=== PATIENT | female | born 1965 | race Hispanic/Latino ===

== ENCOUNTER 2021-08-19 12:57 | Inpatient (IN) | payer SELFPAY ==
[~2021-08-19] VITALS: Ht 157.5 cm; Wt 102.5 kg
[2021-08-19] MEDS ORDERED: SODIUM CHLORIDE 0.9% 1000ML 1,000 ML IV STA (13:19)
[2021-08-19] MEDS ORDERED: ONDANSETRON HCL INJ 2MG/ML 2ML 2 MG/ML VIAL IV ONE (13:30)
[2021-08-19] MEDS ORDERED: MORPHINE SULFATE INJ 4 MG/ML INJ 1ML IV ONE (13:30)
[2021-08-19 13:50] LABS: BASOPHILS # (AUTO) 0.1 (0.0-0.1); BASOPHILS % 0.6 % (0.0-1.0); EOSINOPHILS # (AUTO) 0.1 (0.0-0.4); EOSINOPHILS % 0.5 % (0.0-6.0); HEMATOCRIT 41.7 % (34.2-44.1); HEMOGLOBIN 13.3 g/dL (12.0-16.0); LYMPHOCYTES # (AUTO) 2.2 (1.0-3.2); LYMPHOCYTES % 18.9 % (18.0-39.1); MEAN CORPUSCULAR HEMOGLOBIN 27.5 pg (28-32); MEAN CORPUSCULAR HGB CONC 31.9 g/dL (31-35); MEAN CORPUSCULAR VOLUME 86.2 fL (81-99); MONOCYTES % 8.4 % (4.4-11.3); NEUTROPHILS # (AUTO) 8.2 (2.1-6.9); NEUTROPHILS % 71.1 % (38.7-80.0); PLATELET COUNT 292 x10e3/uL (140-360); RED BLOOD COUNT 4.84 x10e6/uL (3.6-5.1); RED CELL DISTRIBUTION WIDTH 11.9 % (11.7-14.4)
[2021-08-19 14:04] LABS: CLARITY,URINE CLEAR (CLEAR); COLOR,URINE YELLOW (YELLOW); LEUKOCYTE ESTERASE ,URINE TRACE (NEGATIVE); NITRITE,URINE NEGATIVE (NEGATIVE)
[2021-08-19 14:05] LABS: KETONES,URINE 2+ (NEGATIVE); PROTEIN,URINE DIPSTICK 2+ (NEGATIVE); URINE UROBILINOGEN 0.2 mg/dL (0.2 - 1)
[2021-08-19 14:06] LABS: BACTERIA,URINE MODERATE /HPF; EPITHELIAL CELLS,URINE MANY /LPF
[2021-08-19] MEDS ORDERED: CEFTRIAXONE 1 GM in SODIUM CHLORIDE 0.9% 50ML 50 ML IV ONE (15:15)
[2021-08-19 16:12] LABS: ALBUMIN 3.4 g/dL (3.5-5.0); ALBUMIN/GLOBULIN RATIO 0.8 (0.8-2.0); ANION GAP 19.7 mmol/L (8-16); CALCIUM 9.5 mg/dL (8.4-10.2); CREATININE, SERUM 1.05 mg/dL (0.57-1.11); MAGNESIUM 1.9 MG/DL (1.3-2.1); POTASSIUM 3.7 mmol/L (3.5-5.1)
[2021-08-19 16:18] LABS: CREATINE KINASE MB 0.3 ng/mL (0-5.0)
[2021-08-19] MEDS ORDERED: SODIUM CHLORIDE 0.9% 50ML 50 ML ONE (16:39)
[2021-08-19] MEDS ORDERED: PIPERACILLIN/TAZOBACTAM 3.375 GM in SODIUM CHLORIDE 0.9% 50ML 50 ML IV ONE (17:15)
[2021-08-19] MEDS ORDERED: KETOROLAC TROMETHAMINE 30 MG/ML VIAL IV STA (17:21)
[2021-08-19] MEDS ORDERED: ONDANSETRON HCL INJ 2MG/ML 2ML 2 MG/ML VIAL IV PRN (17:30)
[2021-08-19] MEDS ORDERED: HYDRALAZINE HCL 20 MG/ML VIAL IV PRN (17:30)
[2021-08-19] MEDS ORDERED: MORPHINE SULFATE INJ 4 MG/ML INJ 1ML IV PRN (17:30)
[2021-08-19] MEDS: SODIUM CHLORIDE 0.9% 1000ML 1,000 ML IV SCH ×2 (18:20→20:04)
[2021-08-19 20:00] VITALS: BP 157/92
[2021-08-19] MEDS ORDERED: MIRALAX17 GM PO (20:45)
[2021-08-19] MEDS ORDERED: DEXTROSE 50% SYRINGE 50 ML IV PRN (21:15)
[2021-08-19] MEDS: INSULIN REGULAR, HUMAN 100 UNIT/1 ML SQ SCH (22:00)
[2021-08-19] MEDS: INSULIN GLARGINE 100 UNITS/ML VIAL SQ SCH (22:01)
[2021-08-20] VITALS (8 sets, daily range): BP systolic 111–168; BP diastolic 74–91
[2021-08-20] MEDS: SODIUM CHLORIDE 0.9% 1000ML 1,000 ML IV SCH ×3 (04:14→21:21)
[2021-08-20] MEDS: PIPERACILLIN/TAZOBACTAM 3.375 GM in SODIUM CHLORIDE 0.9% 50ML 50 ML IV SCH ×5 (05:53→18:59)
[2021-08-20 06:23] LABS: BASOPHILS # (AUTO) 0.1 (0.0-0.1); BASOPHILS % 0.7 % (0.0-1.0); EOSINOPHILS # (AUTO) 0.1 (0.0-0.4); EOSINOPHILS % 1.1 % (0.0-6.0); HEMATOCRIT 35.7 % (34.2-44.1); HEMOGLOBIN 11.4 g/dL (12.0-16.0); LYMPHOCYTES # (AUTO) 1.5 (1.0-3.2); LYMPHOCYTES % 16.2 % (18.0-39.1); MEAN CORPUSCULAR HGB CONC 31.9 g/dL (31-35); MEAN CORPUSCULAR VOLUME 87.7 fL (81-99); MONOCYTES % 10.6 % (4.4-11.3); NEUTROPHILS # (AUTO) 6.4 (2.1-6.9); NEUTROPHILS % 71.1 % (38.7-80.0); PLATELET COUNT 233 x10e3/uL (140-360); RED BLOOD COUNT 4.07 x10e6/uL (3.6-5.1)
[2021-08-20 06:54] LABS: ALBUMIN 2.7 g/dL (3.5-5.0); ALBUMIN/GLOBULIN RATIO 0.8 (0.8-2.0); ANION GAP 10.3 mmol/L (8-16); CALCIUM 8.2 mg/dL (8.4-10.2); CREATININE, SERUM 0.85 mg/dL (0.57-1.11); POTASSIUM 3.3 mmol/L (3.5-5.1)
[2021-08-20] MEDS: INSULIN REGULAR, HUMAN 100 UNIT/1 ML SQ SCH ×4 (09:01→21:17)
[2021-08-20] MEDS ORDERED: BUPIVACAINE 0.25% 30ML SDV ONE (17:26)
[2021-08-20] MEDS ORDERED: LIDOCAINE 1% W/EPINEPHRINE 20 ML VIAL ONE (17:26)
[2021-08-20] MEDS ORDERED: HYDROCODONE/APAP 7.5MG-325MG 1 EA TAB PO PRN (19:00)
[2021-08-20] MEDS ORDERED: HYDROMORPHONE 1MG/1ML INJ IV PRN (19:00)
[2021-08-20] MEDS: INSULIN GLARGINE 100 UNITS/ML VIAL SQ SCH (21:17)
[2021-08-21] VITALS: BP 150/97
[2021-08-21] MEDS: PIPERACILLIN/TAZOBACTAM 3.375 GM in SODIUM CHLORIDE 0.9% 50ML 50 ML IV SCH ×3 (00:27→13:53)
[2021-08-21 04:00] VITALS: BP 148/84
[2021-08-21 05:03] LABS: BASOPHILS % 0.2 % (0.0-1.0); HEMATOCRIT 36.1 % (34.2-44.1); HEMOGLOBIN 11.4 g/dL (12.0-16.0); LYMPHOCYTES # (AUTO) 0.8 (1.0-3.2); LYMPHOCYTES % 7.8 % (18.0-39.1); MEAN CORPUSCULAR HEMOGLOBIN 27.8 pg (28-32); MEAN CORPUSCULAR HGB CONC 31.6 g/dL (31-35); MONOCYTES # (AUTO) 0.4 (0.2-0.8); MONOCYTES % 3.7 % (4.4-11.3); NEUTROPHILS # (AUTO) 9.3 (2.1-6.9); NEUTROPHILS % 87.7 % (38.7-80.0); PLATELET COUNT 273 x10e3/uL (140-360)
[2021-08-21 05:26] LABS: ANION GAP 15.1 mmol/L (8-16); CALCIUM 8.5 mg/dL (8.4-10.2); CREATININE, SERUM 0.9 mg/dL (0.57-1.11); POTASSIUM 4.1 mmol/L (3.5-5.1)
[2021-08-21] MEDS: SODIUM CHLORIDE 0.9% 1000ML 1,000 ML IV SCH (05:26)
[2021-08-21] MEDS: INSULIN REGULAR, HUMAN 100 UNIT/1 ML SQ SCH ×2 (07:30→11:30)
[2021-08-21 08:02] VITALS: BP 154/97
[2021-08-21 08:06] VITALS: BP 154/97
[2021-08-21 12:00] VITALS: BP 167/93
[2021-08-21] MEDS ORDERED: METFORMIN HCL 500 MG TAB CR PO ONE (14:00)
[2021-08-21] MEDS ORDERED: COLACE100 MG PO (14:24)
[2021-08-21] MEDS ORDERED: FLAGYL500 MG PO (14:24)
[2021-08-21] MEDS ORDERED: METFORMIN HCL500 MG PO (14:24)
[2021-08-21] MEDS ORDERED: SENNA LAX8.6 MG PO (14:24)
[2021-08-21] MEDS ORDERED: ZOFRAN4 MG PO (14:24)
[2021-08-21] MEDS ORDERED: ACETAMINOPHEN650 M1 PO (14:24)
[2021-08-21] MEDS ORDERED: ONDANSETRON HCL 4 MG ORAL DISINTEGRATING TAB PO PRN (15:30)
[2021-08-21] MEDS ORDERED: METFORMIN HCL 500 MG TAB PO SCH (17:00)
== END 2021-08-21 15:28 | disposition home or self-care (01) | DRG 418 ==
LOC: ER 13:07 → ERHOLD 17:30 → MED/SURG2 18:28
PROVIDERS: ADMIT Internal Medicine; ATTEND Internal Medicine
PROC: 0FT44ZZ Resection of Gallbladder, Percutaneous Endoscopic Approach (ICD-10-PCS; principal; 2021-08-19)
DX: K80.00 Calculus of gallbladder with acute cholecystitis without obstruction (principal); N39.0 Urinary tract infection, site not specified; Z68.41 Body mass index [BMI] 40.0-44.9, adult; Z20.822 Contact with and (suspected) exposure to COVID-19; E11.9 Type 2 diabetes mellitus without complications; E66.01 Morbid (severe) obesity due to excess calories; B95.1 Streptococcus, group B, as the cause of diseases classified elsewhere
CPT/HCPCS: 36415; 74177; 78226; 80048; 80053; 80061; 81001; 82150; 82550; 82553; 82948; 83036; 83690; 83735; 84484; 85025; 87086; 88304; 93005; 99284; A9537; C1766; J0360; J0696; J1815; J1817; J1885; J2405; J2543; J7030; U0002

== ENCOUNTER 2022-01-29 03:30 | Inpatient (IN) | payer SELFPAY ==
[~2022-01-29] VITALS: Ht 157.5 cm; Wt 99.8 kg
[~2022-01-29 03:30] MED LIST: ACETAMINOPHEN650 M1 PO; COLACE100 MG PO; FLAGYL500 MG PO; METFORMIN HCL500 MG PO; MIRALAX17 GM PO; SENNA LAX8.6 MG PO; ZOFRAN4 MG PO
[2022-01-29] MEDS ORDERED: ONDANSETRON HCL INJ 2MG/ML 2ML 2 MG/ML VIAL IV STA (03:47)
[2022-01-29 03:59] LABS: BASOPHILS # (AUTO) 0.1 (0.0-0.1); BASOPHILS % 0.4 % (0.0-1.0); EOSINOPHILS # (AUTO) 0.1 (0.0-0.4); EOSINOPHILS % 0.8 % (0.0-6.0); HEMATOCRIT 31.1 % (34.2-44.1); HEMOGLOBIN 10.2 g/dL (12.0-16.0); LYMPHOCYTES # (AUTO) 1.7 (1.0-3.2); LYMPHOCYTES % 13.9 % (18.0-39.1); MEAN CORPUSCULAR HGB CONC 32.8 g/dL (31-35); MEAN CORPUSCULAR VOLUME 85.4 fL (81-99); MONOCYTES % 8.2 % (4.4-11.3); NEUTROPHILS # (AUTO) 9.3 (2.1-6.9); NEUTROPHILS % 76.1 % (38.7-80.0); PLATELET COUNT 150 x10e3/uL (140-360); RED BLOOD COUNT 3.64 x10e6/uL (3.6-5.1); RED CELL DISTRIBUTION WIDTH 12.8 % (11.7-14.4)
[2022-01-29] MEDS ORDERED: SODIUM CHLORIDE 0.9% 1000ML 1,000 ML IV ONE (04:00)
[2022-01-29] MEDS: Morphine 4mg Syringe 4 MG/ML INJ IV ONE ×2 (04:03→04:10)
[2022-01-29 04:14] LABS: AMYLASE 38 U/L (25-125); LIPASE 16 U/L (8-78)
[2022-01-29 04:16] LABS: ALBUMIN 3.2 g/dL (3.5-5.0); ANION GAP 14.8 mmol/L (8-16); CALCIUM 9.1 mg/dL (8.4-10.2); CREATININE, SERUM 1.19 mg/dL (0.57-1.11); POTASSIUM 3.8 mmol/L (3.5-5.1)
[2022-01-29] MEDS ORDERED: ONDANSETRON HCL INJ 2MG/ML 2ML 2 MG/ML VIAL ONE (04:18)
[2022-01-29] MEDS ORDERED: IOPAMIDOL 370 MG/ML 200 ML INFUS..BTL INJ ONE (04:31)
[2022-01-29] MEDS ORDERED: SODIUM CHLORIDE 0.9% 50ML 50 ML ONE (04:31)
[2022-01-29 04:58] LABS: CLARITY,URINE CLOUDY (CLEAR); COLOR,URINE YELLOW (YELLOW); KETONES,URINE 2+ (NEGATIVE); LEUKOCYTE ESTERASE ,URINE SMALL (NEGATIVE); NITRITE,URINE NEGATIVE (NEGATIVE); PROTEIN,URINE DIPSTICK TRACE (NEGATIVE); URINE UROBILINOGEN 0.2 mg/dL (0.2 - 1)
[2022-01-29] MEDS ORDERED: KETOROLAC TROMETHAMINE 30 MG/ML VIAL IV STA ×2 (04:58)
[2022-01-29 05:01] LABS: BACTERIA,URINE FEW /HPF; EPITHELIAL CELLS,URINE MANY /LPF
[2022-01-29] MEDS ORDERED: PIPERACILLIN/TAZOBACTAM 4.5 GM in SODIUM CHLORIDE 0.9% 100 ML IV STA (05:41)
[2022-01-29] MEDS ORDERED: PIPERACILLIN/TAZOBACTAM 4.5GM 4.5 GM VIAL ONE (05:57)
[2022-01-29] MEDS ORDERED: SODIUM CHLORIDE 0.9% 100 ML ONE (05:58)
[2022-01-29] MEDS ORDERED: Morphine 4mg Syringe 4 MG/ML INJ IV PRN (06:00)
[2022-01-29] MEDS: SODIUM CHLORIDE 0.9% 1000ML 1,000 ML IV SCH ×3 (06:00→22:00)
[2022-01-29 08:15] VITALS: BP 118/75
[2022-01-29] MEDS ORDERED: METRONIDAZOLE 750MG/NS 150ML 150 ML IV SCH (09:00)
[2022-01-29] MEDS ORDERED: SODIUM CHLORIDE 0.9% 1000ML 1,000 ML ONE (09:01)
[2022-01-29] MEDS: METRONIDAZOLE 500MG/NS 100ML 100 ML IV SCH ×3 (09:30→21:55)
[2022-01-29] MEDS ORDERED: DEXTROSE 50% SYRINGE 50 ML IV PRN (09:45)
[2022-01-29] MEDS ORDERED: INSULIN REGULAR, HUMAN 100 UNIT/1 ML SQ ONE (10:10)
[2022-01-29 11:30] VITALS: BP 107/67
[2022-01-29] MEDS ORDERED: ACETAMINOPHEN 325 MG TAB PO PRN (12:15)
[2022-01-29] MEDS ORDERED: POLYETHYLENE GLYCOL 3350 17 GM PACK PO PRN (12:15)
[2022-01-29] MEDS: INSULIN REGULAR, HUMAN 100 UNIT/1 ML SQ SCH ×3 (12:22→21:56)
[2022-01-29] MEDS: INSULIN GLARGINE 100 UNITS/ML VIAL SQ SCH ×3 (12:30→21:57)
[2022-01-29] MEDS: PIPERACILLIN/TAZOBACTAM 3.375 GM in SODIUM CHLORIDE 0.9% 50ML 50 ML IV SCH ×2 (13:39→17:11)
[2022-01-29 16:14] VITALS: BP 94/76
[2022-01-29] MEDS ORDERED: ENOXAPARIN SOD INJ 40 MG/0.4 ML SYR SC SCH (17:00)
[2022-01-29] MEDS: ONDANSETRON HCL INJ 2MG/ML 2ML 2 MG/ML VIAL IV PRN (19:45)
[2022-01-29 20:00] VITALS: BP 103/67
[2022-01-29 23:50] VITALS: BP 103/67
[2022-01-30] VITALS (18 sets, daily range): BP systolic 95–147; BP diastolic 55–99
[2022-01-30] MEDS: PIPERACILLIN/TAZOBACTAM 3.375 GM in SODIUM CHLORIDE 0.9% 50ML 50 ML IV SCH ×5 (00:33→23:35)
[2022-01-30] MEDS: ONDANSETRON HCL INJ 2MG/ML 2ML 2 MG/ML VIAL IV PRN (00:33)
[2022-01-30] MEDS: METOCLOPRAMIDE HCL 10 MG/2ML VIAL IV PRN (05:43)
[2022-01-30] MEDS ORDERED: IOPAMIDOL 370 MG/ML 200 ML INFUS..BTL INJ ONE ×2 (05:55→12:22)
[2022-01-30] MEDS ORDERED: SODIUM CHLORIDE 0.9% 50ML 50 ML ONE (05:55)
[2022-01-30 07:02] LABS: BASOPHILS # (AUTO) 0.1 (0.0-0.1); BASOPHILS % 0.4 % (0.0-1.0); LYMPHOCYTES # (AUTO) 2.2 (1.0-3.2); LYMPHOCYTES % 13.8 % (18.0-39.1); MEAN CORPUSCULAR HEMOGLOBIN 28.8 pg (28-32); MEAN CORPUSCULAR HGB CONC 30.4 g/dL (31-35); MEAN CORPUSCULAR VOLUME 94.9 fL (81-99); MONOCYTES # (AUTO) 1.6 (0.2-0.8); MONOCYTES % 10.2 % (4.4-11.3); NEUTROPHILS # (AUTO) 11.6 (2.1-6.9); NEUTROPHILS % 74.6 % (38.7-80.0); PLATELET COUNT 159 x10e3/uL (140-360); RED BLOOD COUNT 2.15 x10e6/uL (3.6-5.1); RED CELL DISTRIBUTION WIDTH 13.5 % (11.7-14.4)
[2022-01-30 07:07] LABS: HEMATOCRIT 20.4 % (34.2-44.1); HEMOGLOBIN 6.2 g/dL (12.0-16.0)
[2022-01-30 07:24] LABS: ANION GAP 14.1 mmol/L (8-16); CREATININE, SERUM 2.29 mg/dL (0.57-1.11); POTASSIUM 4.1 mmol/L (3.5-5.1)
[2022-01-30] MEDS: INSULIN REGULAR, HUMAN 100 UNIT/1 ML SQ SCH ×4 (07:30→21:23)
[2022-01-30] MEDS ORDERED: SODIUM CHLORIDE 0.9% 250ML 250 ML IV ONE ×2 (08:00→13:10)
[2022-01-30] MEDS: SODIUM CHLORIDE 0.9% 1000ML 1,000 ML IV SCH (08:52)
[2022-01-30] MEDS: METRONIDAZOLE 500MG/NS 100ML 100 ML IV SCH ×3 (08:52→21:21)
[2022-01-30] MEDS: SENNOSIDES 8.6 MG TAB PO SCH (09:00)
[2022-01-30] MEDS: DOCUSATE SODIUM 100 MG CAP PO SCH (09:00)
[2022-01-30 11:38] LABS: HEMATOCRIT 16.7 % (34.2-44.1); HEMOGLOBIN 5.2 g/dL (12.0-16.0)
[2022-01-30] MEDS ORDERED: MIDAZOLAM HCL 2 MG/2 ML VIAL ONE ×2 (12:16→12:22)
[2022-01-30] MEDS ORDERED: SODIUM CHLORIDE 0.9% 250ML 250 ML ONE ×3 (12:17→17:59)
[2022-01-30] MEDS ORDERED: FENTANYL CITRATE/PF 100MCG/2 ML INJ ONE ×2 (12:17→12:22)
[2022-01-30] MEDS ORDERED: SODIUM CHLORIDE 0.9% 1000ML 1,000 ML ONE (12:22)
[2022-01-30] MEDS ORDERED: LIDOCAINE HCL 2% LOCAL 20 ML VIAL ONE ×2 (12:22→12:45)
[2022-01-30] MEDS ORDERED: SODIUM CHLORIDE 0.9% 500ML 500 ML ONE (12:28)
[2022-01-30] MEDS ORDERED: HEPARIN SOD/SOD CHLORIDE 2,000 ML ONE (12:45)
[2022-01-30] MEDS ORDERED: IOPAMIDOL 300MG/ML 100 ML INFUS..BTL IV ONE (12:46)
[2022-01-30] MEDS ORDERED: FUROSEMIDE INJ 10 MG/ML 2 ML VIAL IV ONE (16:35)
[2022-01-30 20:55] LABS: BASOPHILS % 0.1 % (0.0-1.0); HEMOGLOBIN 11.4 g/dL (12.0-16.0); LYMPHOCYTES # (AUTO) 0.7 (1.0-3.2); LYMPHOCYTES % 4.1 % (18.0-39.1); MEAN CORPUSCULAR HEMOGLOBIN 28.4 pg (28-32); MEAN CORPUSCULAR HGB CONC 32.6 g/dL (31-35); MEAN CORPUSCULAR VOLUME 87.3 fL (81-99); MONOCYTES % 5.7 % (4.4-11.3); NEUTROPHILS # (AUTO) 16.2 (2.1-6.9); NEUTROPHILS % 89.1 % (38.7-80.0); PLATELET COUNT 307 x10e3/uL (140-360); RED BLOOD COUNT 4.01 x10e6/uL (3.6-5.1); RED CELL DISTRIBUTION WIDTH 14.2 % (11.7-14.4)
[2022-01-30] MEDS: SODIUM BICARBONATE 8.4% 75 ML in SODIUM CHLORIDE 0.45% 1,000 ML IV SCH (21:21)
[2022-01-30] MEDS: METOPROLOL TARTRATE INJ 1 MG/ML VIAL IV PRN (21:22)
[2022-01-30] MEDS: INSULIN GLARGINE 100 UNITS/ML VIAL SQ SCH (21:23)
[2022-01-31] VITALS (8 sets, daily range): BP systolic 104–128; BP diastolic 59–71
[2022-01-31 01:18] LABS: % IRON SATURATION 16 % (15-50); IRON 44 ug/dL (50-170); TOTAL IRON BINDING CAPACITY 269 ug/dL (261-478); TRANSFERRIN 192 mg/dL (180-382)
[2022-01-31] MEDS: ONDANSETRON HCL INJ 2MG/ML 2ML 2 MG/ML VIAL IV PRN ×2 (02:38→14:58)
[2022-01-31] MEDS: PIPERACILLIN/TAZOBACTAM 3.375 GM in SODIUM CHLORIDE 0.9% 50ML 50 ML IV SCH ×4 (05:12→23:43)
[2022-01-31 05:31] LABS: ALBUMIN 2.6 g/dL (3.5-5.0); ALBUMIN/GLOBULIN RATIO 0.9 (0.8-2.0); CALCIUM 7.8 mg/dL (8.4-10.2); CREATININE, SERUM 2.75 mg/dL (0.57-1.11)
[2022-01-31 07:36] LABS: MEAN CORPUSCULAR HEMOGLOBIN 29.1 pg (28-32); MEAN CORPUSCULAR HGB CONC 32.5 g/dL (31-35); MEAN CORPUSCULAR VOLUME 89.7 fL (81-99); RED BLOOD COUNT 2.13 x10e6/uL (3.6-5.1); RED CELL DISTRIBUTION WIDTH 13.5 % (11.7-14.4)
[2022-01-31 07:37] LABS: BASOPHILS # (AUTO) 0.1 (0.0-0.1); BASOPHILS % 0.4 % (0.0-1.0); LYMPHOCYTES # (AUTO) 1.8 (1.0-3.2); MONOCYTES # (AUTO) 1.8 (0.2-0.8); MONOCYTES % 10.9 % (4.4-11.3); NEUTROPHILS # (AUTO) 12.6 (2.1-6.9); NEUTROPHILS % 75.8 % (38.7-80.0); PLATELET COUNT 149 x10e3/uL (140-360)
[2022-01-31 07:47] LABS: HEMATOCRIT 19.1 % (34.2-44.1); HEMOGLOBIN 6.2 g/dL (12.0-16.0)
[2022-01-31] MEDS ORDERED: SODIUM CHLORIDE 0.9% 250ML 250 ML IV ONE (08:15)
[2022-01-31] MEDS: DOCUSATE SODIUM 100 MG CAP PO SCH (08:39)
[2022-01-31] MEDS: SENNOSIDES 8.6 MG TAB PO SCH (08:39)
[2022-01-31] MEDS: METRONIDAZOLE 500MG/NS 100ML 100 ML IV SCH ×3 (08:39→21:24)
[2022-01-31] MEDS: INSULIN REGULAR, HUMAN 100 UNIT/1 ML SQ SCH ×4 (08:40→21:40)
[2022-01-31] MEDS: METOPROLOL TARTRATE INJ 1 MG/ML VIAL IV PRN ×2 (08:49→21:25)
[2022-01-31 12:08] LABS: INR 1.33; PROTHROMBIN TIME 17.6 seconds (11.9-14.5)
[2022-01-31 12:09] LABS: PARTIAL THROMBOPLASTIN TIME 31.2 seconds (23.8-35.5)
[2022-01-31] MEDS: ACETYLCYSTEINE 200 MG/ML 4ML VIAL PO SCH ×2 (12:29→17:00)
[2022-01-31] MEDS: SODIUM BICARBONATE 8.4% 75 ML in SODIUM CHLORIDE 0.45% 1,000 ML IV SCH ×2 (13:36→16:35)
[2022-01-31] MEDS ORDERED: SODIUM CHLORIDE 0.9% 250ML 250 ML ONE ×2 (14:23→23:27)
[2022-01-31] MEDS: INSULIN GLARGINE 100 UNITS/ML VIAL SQ SCH (21:41)
[2022-02-01] VITALS (8 sets, daily range): BP systolic 122–149; BP diastolic 70–78
[2022-02-01] MEDS: SODIUM BICARBONATE 8.4% 75 ML in SODIUM CHLORIDE 0.45% 1,000 ML IV SCH ×3 (06:17→18:28)
[2022-02-01] MEDS: PIPERACILLIN/TAZOBACTAM 3.375 GM in SODIUM CHLORIDE 0.9% 50ML 50 ML IV SCH ×3 (06:17→16:43)
[2022-02-01] MEDS: METRONIDAZOLE 500MG/NS 100ML 100 ML IV SCH ×3 (08:05→22:08)
[2022-02-01] MEDS: DOCUSATE SODIUM 100 MG CAP PO SCH (08:05)
[2022-02-01] MEDS: SENNOSIDES 8.6 MG TAB PO SCH (08:06)
[2022-02-01] MEDS: INSULIN REGULAR, HUMAN 100 UNIT/1 ML SQ SCH ×4 (09:49→22:09)
[2022-02-01 10:11] LABS: BASOPHILS # (AUTO) 0.1 (0.0-0.1); BASOPHILS % 0.3 % (0.0-1.0); HEMATOCRIT 25.5 % (34.2-44.1); HEMOGLOBIN 8.7 g/dL (12.0-16.0); LYMPHOCYTES # (AUTO) 1.1 (1.0-3.2); LYMPHOCYTES % 7.6 % (18.0-39.1); MEAN CORPUSCULAR HEMOGLOBIN 29.5 pg (28-32); MEAN CORPUSCULAR HGB CONC 34.1 g/dL (31-35); MEAN CORPUSCULAR VOLUME 86.4 fL (81-99); MONOCYTES # (AUTO) 1.4 (0.2-0.8); MONOCYTES % 9.3 % (4.4-11.3); NEUTROPHILS # (AUTO) 12.1 (2.1-6.9); PLATELET COUNT 144 x10e3/uL (140-360); RED BLOOD COUNT 2.95 x10e6/uL (3.6-5.1); RED CELL DISTRIBUTION WIDTH 13.8 % (11.7-14.4)
[2022-02-01] MEDS: IRON SUCROSE 100 MG in SODIUM CHLORIDE 0.9% 100 ML 100 ML IV SCH (10:13)
[2022-02-01 10:32] LABS: ALBUMIN 2.5 g/dL (3.5-5.0); ALBUMIN/GLOBULIN RATIO 0.9 (0.8-2.0); ANION GAP 11.4 mmol/L (8-16); CALCIUM 7.9 mg/dL (8.4-10.2); CREATININE, SERUM 2.61 mg/dL (0.57-1.11); MAGNESIUM 1.9 MG/DL (1.3-2.1); PHOSPHORUS 3.5 MG/DL (2.3-4.7); POTASSIUM 3.4 mmol/L (3.5-5.1)
[2022-02-01] MEDS ORDERED: EPOETIN ALFA-EPBX 10,000 UNIT/ML VIAL SC ONE (12:30)
[2022-02-01] MEDS: ONDANSETRON HCL INJ 2MG/ML 2ML 2 MG/ML VIAL IV PRN (13:35)
[2022-02-01] MEDS ORDERED: POTASSIUM CHLORIDE 20MEQ/100ML 200 ML IV ONE (16:45)
[2022-02-01] MEDS: TRAMADOL HCL 50 MG TAB PO PRN (18:42)
[2022-02-01] MEDS: INSULIN GLARGINE 100 UNITS/ML VIAL SQ SCH (22:10)
[2022-02-02] VITALS (10 sets, daily range): BP systolic 121–149; BP diastolic 52–86
[2022-02-02] MEDS: PIPERACILLIN/TAZOBACTAM 3.375 GM in SODIUM CHLORIDE 0.9% 50ML 50 ML IV SCH ×4 (00:25→18:39)
[2022-02-02] MEDS ORDERED: PHYTONADIONE 10 MG/ML AMP IV ONE (00:30)
[2022-02-02] MEDS ORDERED: SODIUM CHLORIDE 0.9% 50ML 50 ML ONE ×2 (01:37→07:32)
[2022-02-02] MEDS: SODIUM BICARBONATE 8.4% 75 ML in SODIUM CHLORIDE 0.45% 1,000 ML IV SCH ×2 (02:59→12:29)
[2022-02-02 06:38] LABS: ALBUMIN 2.3 g/dL (3.5-5.0); ALBUMIN/GLOBULIN RATIO 0.7 (0.8-2.0); ANION GAP 14.8 mmol/L (8-16); CALCIUM 7.3 mg/dL (8.4-10.2); CREATININE, SERUM 1.74 mg/dL (0.57-1.11); PHOSPHORUS 2.9 MG/DL (2.3-4.7); POTASSIUM 3.8 mmol/L (3.5-5.1)
[2022-02-02] MEDS: IRON SUCROSE 100 MG in SODIUM CHLORIDE 0.9% 100 ML 100 ML IV SCH (08:55)
[2022-02-02] MEDS: METRONIDAZOLE 500MG/NS 100ML 100 ML IV SCH ×3 (08:55→21:54)
[2022-02-02] MEDS: SENNOSIDES 8.6 MG TAB PO SCH (09:00)
[2022-02-02] MEDS: DOCUSATE SODIUM 100 MG CAP PO SCH (09:00)
[2022-02-02] MEDS: INSULIN REGULAR, HUMAN 100 UNIT/1 ML SQ SCH ×4 (09:05→20:26)
[2022-02-02 11:46] LABS: HEMATOCRIT 26.5 % (34.2-44.1); HEMOGLOBIN 8.8 g/dL (12.0-16.0)
[2022-02-02] MEDS: TRAMADOL HCL 50 MG TAB PO PRN (16:37)
[2022-02-02] MEDS: ONDANSETRON HCL INJ 2MG/ML 2ML 2 MG/ML VIAL IV PRN (16:37)
[2022-02-02] MEDS: INSULIN GLARGINE 100 UNITS/ML VIAL SQ SCH (20:26)
[2022-02-02 22:01] LABS: CLARITY,URINE CLEAR (CLEAR); COLOR,URINE YELLOW (YELLOW); KETONES,URINE NEGATIVE (NEGATIVE); LEUKOCYTE ESTERASE ,URINE TRACE (NEGATIVE); NITRITE,URINE NEGATIVE (NEGATIVE); PROTEIN,URINE DIPSTICK TRACE (NEGATIVE); URINE UROBILINOGEN 0.2 mg/dL (0.2 - 1)
[2022-02-02 22:09] LABS: BACTERIA,URINE MODERATE /HPF; EPITHELIAL CELLS,URINE MODERATE /LPF; RBC,URINE 0-5 /HPF (0-5)
[2022-02-03] VITALS (8 sets, daily range): BP systolic 119–142; BP diastolic 55–79
[2022-02-03] MEDS: PIPERACILLIN/TAZOBACTAM 3.375 GM in SODIUM CHLORIDE 0.9% 50ML 50 ML IV SCH ×4 (00:20→18:00)
[2022-02-03] MEDS ORDERED: SODIUM CHLORIDE 0.9% 50ML 50 ML ONE (00:27)
[2022-02-03] MEDS: SODIUM BICARBONATE 8.4% 75 ML in SODIUM CHLORIDE 0.45% 1,000 ML IV SCH ×4 (01:45→19:34)
[2022-02-03] MEDS: METOCLOPRAMIDE HCL 10 MG/2ML VIAL IV PRN ×2 (02:26→22:02)
[2022-02-03] MEDS: METRONIDAZOLE 500MG/NS 100ML 100 ML IV SCH ×3 (06:52→22:02)
[2022-02-03] MEDS: INSULIN REGULAR, HUMAN 100 UNIT/1 ML SQ SCH ×4 (08:17→22:04)
[2022-02-03] MEDS: DOCUSATE SODIUM 100 MG CAP PO SCH (09:00)
[2022-02-03] MEDS: SENNOSIDES 8.6 MG TAB PO SCH (09:00)
[2022-02-03] MEDS: IRON SUCROSE 100 MG in SODIUM CHLORIDE 0.9% 100 ML 100 ML IV SCH (09:05)
[2022-02-03 09:54] LABS: BASOPHILS # (AUTO) 0.1 (0.0-0.1); BASOPHILS % 0.4 % (0.0-1.0); EOSINOPHILS # (AUTO) 0.1 (0.0-0.4); EOSINOPHILS % 0.5 % (0.0-6.0); HEMATOCRIT 25.1 % (34.2-44.1); HEMOGLOBIN 8.4 g/dL (12.0-16.0); LYMPHOCYTES # (AUTO) 1.1 (1.0-3.2); LYMPHOCYTES % 7.7 % (18.0-39.1); MEAN CORPUSCULAR HEMOGLOBIN 29.8 pg (28-32); MEAN CORPUSCULAR HGB CONC 33.5 g/dL (31-35); MONOCYTES # (AUTO) 1.6 (0.2-0.8); MONOCYTES % 10.6 % (4.4-11.3); NEUTROPHILS # (AUTO) 11.6 (2.1-6.9); NEUTROPHILS % 78.9 % (38.7-80.0); PLATELET COUNT 231 x10e3/uL (140-360); RED BLOOD COUNT 2.82 x10e6/uL (3.6-5.1); RED CELL DISTRIBUTION WIDTH 14.4 % (11.7-14.4)
[2022-02-03 10:09] LABS: CALCIUM 7.4 mg/dL (8.4-10.2); CREATININE, SERUM 1.16 mg/dL (0.57-1.11)
[2022-02-03] MEDS ORDERED: SODIUM CHLORIDE 0.9% 100 ML ONE (21:47)
[2022-02-03] MEDS: INSULIN GLARGINE 100 UNITS/ML VIAL SQ SCH (22:03)
[2022-02-04] VITALS (8 sets, daily range): BP systolic 111–142; BP diastolic 52–97
[2022-02-04] MEDS: PIPERACILLIN/TAZOBACTAM 3.375 GM in SODIUM CHLORIDE 0.9% 50ML 50 ML IV SCH ×5 (00:31→23:17)
[2022-02-04] MEDS: SODIUM BICARBONATE 8.4% 75 ML in SODIUM CHLORIDE 0.45% 1,000 ML IV SCH (06:04)
[2022-02-04] MEDS: METRONIDAZOLE 500MG/NS 100ML 100 ML IV SCH ×3 (06:42→21:10)
[2022-02-04] MEDS: IRON SUCROSE 100 MG in SODIUM CHLORIDE 0.9% 100 ML 100 ML IV SCH (08:15)
[2022-02-04] MEDS: DOCUSATE SODIUM 100 MG CAP PO SCH (08:15)
[2022-02-04] MEDS: SENNOSIDES 8.6 MG TAB PO SCH (08:15)
[2022-02-04] MEDS: INSULIN REGULAR, HUMAN 100 UNIT/1 ML SQ SCH ×4 (08:16→21:10)
[2022-02-04 08:30] LABS: BASOPHILS # (AUTO) 0.1 (0.0-0.1); BASOPHILS % 0.3 % (0.0-1.0); EOSINOPHILS # (AUTO) 0.2 (0.0-0.4); EOSINOPHILS % 0.9 % (0.0-6.0); HEMATOCRIT 24.1 % (34.2-44.1); HEMOGLOBIN 7.9 g/dL (12.0-16.0); LYMPHOCYTES # (AUTO) 1.2 (1.0-3.2); LYMPHOCYTES % 7.3 % (18.0-39.1); MEAN CORPUSCULAR HEMOGLOBIN 29.6 pg (28-32); MEAN CORPUSCULAR HGB CONC 32.8 g/dL (31-35); MEAN CORPUSCULAR VOLUME 90.3 fL (81-99); MONOCYTES # (AUTO) 1.7 (0.2-0.8); MONOCYTES % 10.3 % (4.4-11.3); NEUTROPHILS # (AUTO) 12.6 (2.1-6.9); NEUTROPHILS % 78.9 % (38.7-80.0); PLATELET COUNT 284 x10e3/uL (140-360); RED BLOOD COUNT 2.67 x10e6/uL (3.6-5.1); RED CELL DISTRIBUTION WIDTH 14.6 % (11.7-14.4)
[2022-02-04 08:44] LABS: ANION GAP 12.1 mmol/L (8-16); CALCIUM 7.3 mg/dL (8.4-10.2); CREATININE, SERUM 1.08 mg/dL (0.57-1.11); POTASSIUM 3.1 mmol/L (3.5-5.1)
[2022-02-04] MEDS ORDERED: CALCIUM GLUC 1 G/50 ML NACL 100 ML IV ONE (10:00)
[2022-02-04] MEDS ORDERED: EPOETIN ALFA-EPBX 10,000 UNIT/ML VIAL SC ONE (10:00)
[2022-02-04] MEDS ORDERED: POTASSIUM CHLORIDE 10MEQ/100ML 100 ML IV ONE ×2 (12:00→14:00)
[2022-02-04] MEDS ORDERED: POTASSIUM CHLORIDE 20MEQ/100ML 200 ML IV ONE (12:00)
[2022-02-04] MEDS ORDERED: SODIUM CHLORIDE 0.9% 250ML 250 ML ONE (13:53)
[2022-02-04] MEDS: INSULIN GLARGINE 100 UNITS/ML VIAL SQ SCH (21:10)
[2022-02-05] VITALS (8 sets, daily range): BP systolic 102–121; BP diastolic 50–75
[2022-02-05] MEDS ORDERED: SODIUM CHLORIDE 0.9% 250ML 250 ML ONE ×3 (05:26→20:34)
[2022-02-05] MEDS: PIPERACILLIN/TAZOBACTAM 3.375 GM in SODIUM CHLORIDE 0.9% 50ML 50 ML IV SCH ×4 (05:35→23:30)
[2022-02-05] MEDS: ONDANSETRON HCL INJ 2MG/ML 2ML 2 MG/ML VIAL IV PRN (05:53)
[2022-02-05 06:23] LABS: ALBUMIN 2.1 g/dL (3.5-5.0); ALBUMIN/GLOBULIN RATIO 0.8 (0.8-2.0); ANION GAP 11.1 mmol/L (8-16); CALCIUM 7.7 mg/dL (8.4-10.2); MAGNESIUM 1.6 MG/DL (1.3-2.1); PHOSPHORUS 1.9 MG/DL (2.3-4.7); POTASSIUM 3.1 mmol/L (3.5-5.1)
[2022-02-05] MEDS: METRONIDAZOLE 500MG/NS 100ML 100 ML IV SCH (06:31)
[2022-02-05] MEDS: INSULIN REGULAR, HUMAN 100 UNIT/1 ML SQ SCH ×4 (07:30→21:00)
[2022-02-05] MEDS: SENNOSIDES 8.6 MG TAB PO SCH (09:00)
[2022-02-05] MEDS: DOCUSATE SODIUM 100 MG CAP PO SCH (09:00)
[2022-02-05] MEDS ORDERED: POTASSIUM CHLORIDE 20 MEQ TAB CR PO ONE (09:00)
[2022-02-05] MEDS: IRON SUCROSE 100 MG in SODIUM CHLORIDE 0.9% 100 ML 100 ML IV SCH (09:17)
[2022-02-05] MEDS ORDERED: LIDOCAINE HCL 1% LOCAL INJ 20 ML VIAL ONE (09:37)
[2022-02-05] MEDS ORDERED: MIDAZOLAM HCL 2 MG/2 ML VIAL ONE (10:37)
[2022-02-05] MEDS ORDERED: FENTANYL CITRATE/PF 100MCG/2 ML INJ ONE (10:38)
[2022-02-05 12:54] LABS: BASOPHILS # (AUTO) 0.1 (0.0-0.1); BASOPHILS % 0.3 % (0.0-1.0); EOSINOPHILS # (AUTO) 0.1 (0.0-0.4); EOSINOPHILS % 0.8 % (0.0-6.0); HEMATOCRIT 22.6 % (34.2-44.1); HEMOGLOBIN 7.1 g/dL (12.0-16.0); LYMPHOCYTES # (AUTO) 1.4 (1.0-3.2); LYMPHOCYTES % 8.1 % (18.0-39.1); MEAN CORPUSCULAR HEMOGLOBIN 29.3 pg (28-32); MEAN CORPUSCULAR HGB CONC 31.4 g/dL (31-35); MEAN CORPUSCULAR VOLUME 93.4 fL (81-99); MONOCYTES # (AUTO) 1.7 (0.2-0.8); NEUTROPHILS # (AUTO) 13.4 (2.1-6.9); NEUTROPHILS % 77.8 % (38.7-80.0); PLATELET COUNT 315 x10e3/uL (140-360); RED BLOOD COUNT 2.42 x10e6/uL (3.6-5.1); RED CELL DISTRIBUTION WIDTH 15.2 % (11.7-14.4)
[2022-02-05] MEDS ORDERED: SODIUM CHLORIDE 0.9% 250ML 250 ML IV ONE (14:30)
[2022-02-05] MEDS: TRAMADOL HCL 50 MG TAB PO PRN (17:13)
[2022-02-05] MEDS: INSULIN GLARGINE 100 UNITS/ML VIAL SQ SCH (21:00)
[2022-02-05] MEDS: SODIUM CHLORIDE 0.9% 1000ML 1,000 ML IV SCH (23:30)
[2022-02-06] VITALS (7 sets, daily range): BP systolic 107–136; BP diastolic 56–70
[2022-02-06] MEDS: PIPERACILLIN/TAZOBACTAM 3.375 GM in SODIUM CHLORIDE 0.9% 50ML 50 ML IV SCH (06:08)
[2022-02-06] MEDS: SODIUM CHLORIDE 0.9% 1000ML 1,000 ML IV SCH (06:34)
[2022-02-06] MEDS: INSULIN REGULAR, HUMAN 100 UNIT/1 ML SQ SCH ×4 (07:30→21:55)
[2022-02-06 08:53] LABS: BASOPHILS # (AUTO) 0.1 (0.0-0.1); BASOPHILS % 0.5 % (0.0-1.0); EOSINOPHILS # (AUTO) 0.1 (0.0-0.4); EOSINOPHILS % 0.6 % (0.0-6.0); HEMATOCRIT 28.9 % (34.2-44.1); HEMOGLOBIN 9.3 g/dL (12.0-16.0); LYMPHOCYTES # (AUTO) 1.6 (1.0-3.2); LYMPHOCYTES % 7.8 % (18.0-39.1); MEAN CORPUSCULAR HEMOGLOBIN 29.2 pg (28-32); MEAN CORPUSCULAR HGB CONC 32.2 g/dL (31-35); MEAN CORPUSCULAR VOLUME 90.9 fL (81-99); MONOCYTES % 9.8 % (4.4-11.3); NEUTROPHILS % 76.4 % (38.7-80.0); PLATELET COUNT 341 x10e3/uL (140-360); RED BLOOD COUNT 3.18 x10e6/uL (3.6-5.1); RED CELL DISTRIBUTION WIDTH 14.6 % (11.7-14.4)
[2022-02-06 09:14] LABS: ANION GAP 11.5 mmol/L (8-16); CALCIUM 7.6 mg/dL (8.4-10.2); CREATININE, SERUM 1.12 mg/dL (0.57-1.11); POTASSIUM 3.5 mmol/L (3.5-5.1)
[2022-02-06] MEDS ORDERED: POTASSIUM PHOSPHATE 15 MM in SODIUM CHLORIDE 0.9% 250ML 250 ML IV ONE (09:30)
[2022-02-06] MEDS: DOCUSATE SODIUM 100 MG CAP PO SCH (10:34)
[2022-02-06] MEDS: SENNOSIDES 8.6 MG TAB PO SCH (10:34)
[2022-02-06] MEDS ORDERED: Vancomycin IV 1 GM in SODIUM CHLORIDE 0.9% 250ML 250 ML IV ONE (12:00)
[2022-02-06] MEDS: CEFEPIME 1 GM in SODIUM CHLORIDE 0.9% 50ML 50 ML IV SCH (14:23)
[2022-02-06] MEDS: IRON SUCROSE 100 MG in SODIUM CHLORIDE 0.9% 100 ML 100 ML IV SCH (14:23)
[2022-02-06 20:06] LABS: BASOPHILS # (AUTO) 0.1 (0.0-0.1); BASOPHILS % 0.5 % (0.0-1.0); EOSINOPHILS # (AUTO) 0.1 (0.0-0.4); EOSINOPHILS % 0.3 % (0.0-6.0); HEMATOCRIT 24.7 % (34.2-44.1); HEMOGLOBIN 8.1 g/dL (12.0-16.0); LYMPHOCYTES # (AUTO) 1.4 (1.0-3.2); LYMPHOCYTES % 6.2 % (18.0-39.1); MEAN CORPUSCULAR HEMOGLOBIN 29.9 pg (28-32); MEAN CORPUSCULAR HGB CONC 32.8 g/dL (31-35); MEAN CORPUSCULAR VOLUME 91.1 fL (81-99); MONOCYTES # (AUTO) 2.2 (0.2-0.8); MONOCYTES % 9.6 % (4.4-11.3); NEUTROPHILS # (AUTO) 18.1 (2.1-6.9); NEUTROPHILS % 77.9 % (38.7-80.0); PLATELET COUNT 339 x10e3/uL (140-360); RED BLOOD COUNT 2.71 x10e6/uL (3.6-5.1)
[2022-02-06] MEDS: ONDANSETRON HCL INJ 2MG/ML 2ML 2 MG/ML VIAL IV PRN (20:07)
[2022-02-06] MEDS: INSULIN GLARGINE 100 UNITS/ML VIAL SQ SCH (21:55)
[2022-02-07] VITALS (8 sets, daily range): BP systolic 96–131; BP diastolic 51–74
[2022-02-07] MEDS: METOCLOPRAMIDE HCL 10 MG/2ML VIAL IV SCH ×4 (00:06→17:03)
[2022-02-07 00:51] LABS: INR 1.27
[2022-02-07] MEDS: METOPROLOL TARTRATE INJ 1 MG/ML VIAL IV PRN ×4 (00:59→16:56)
[2022-02-07] MEDS: CEFEPIME 1 GM in SODIUM CHLORIDE 0.9% 50ML 50 ML IV SCH ×2 (01:09→13:01)
[2022-02-07] MEDS ORDERED: SODIUM CHLORIDE 0.9% 250ML 250 ML ONE ×2 (03:13→14:22)
[2022-02-07] MEDS ORDERED: VANCOMYCIN 250MG/5ML ORAL SOLN PO STA (04:02)
[2022-02-07] MEDS: VANCOMYCIN HCL 125 MG CAPSULE PO SCH ×3 (05:27→17:03)
[2022-02-07] MEDS ORDERED: SODIUM CHLORIDE 0.45% 1,000 ML IV ONE (05:45)
[2022-02-07 06:37] LABS: BASOPHILS # (AUTO) 0.1 (0.0-0.1); BASOPHILS % 0.4 % (0.0-1.0); EOSINOPHILS # (AUTO) 0.1 (0.0-0.4); EOSINOPHILS % 0.3 % (0.0-6.0); LYMPHOCYTES # (AUTO) 1.6 (1.0-3.2); LYMPHOCYTES % 7.3 % (18.0-39.1); MEAN CORPUSCULAR HEMOGLOBIN 29.6 pg (28-32); MEAN CORPUSCULAR HGB CONC 31.8 g/dL (31-35); MONOCYTES # (AUTO) 2.2 (0.2-0.8); MONOCYTES % 10.5 % (4.4-11.3); NEUTROPHILS # (AUTO) 16.1 (2.1-6.9); PLATELET COUNT 301 x10e3/uL (140-360); RED CELL DISTRIBUTION WIDTH 15.3 % (11.7-14.4)
[2022-02-07 06:40] LABS: HEMATOCRIT 21.4 % (34.2-44.1); HEMOGLOBIN 6.8 g/dL (12.0-16.0)
[2022-02-07 06:52] LABS: ALBUMIN/GLOBULIN RATIO 0.7 (0.8-2.0); ANION GAP 10.6 mmol/L (8-16); CALCIUM 7.1 mg/dL (8.4-10.2); CREATININE, SERUM 1.16 mg/dL (0.57-1.11); POTASSIUM 3.6 mmol/L (3.5-5.1)
[2022-02-07] MEDS ORDERED: SODIUM CHLORIDE 0.9% 250ML 250 ML IV ONE (07:00)
[2022-02-07 08:10] LABS: ANISOCYTOSIS SLIGHT; BAND NEUTROPHILS % (MANUAL) 2 %; EOSINOPHILS % (MANUAL) 1 % (0-7); LYMPHOCYTES % (MANUAL) 5 % (19-48); METAMYELOCYTES % (MANUAL) 1 % (0-0); MICROCYTOSIS SLIGHT; MONOCYTES % (MANUAL) 6 % (3.4-9.0); MYELOCYTES % (MANUAL) 2 % (0-0); NEUTROPHILS % (MANUAL) 82 % (40-74); PLATELET ESTIMATE ADEQUATE; PLATELET MORPHOLOGY COMMENT NORMAL; POLYCHROMASIA FEW; PROMYELOCYTES % (MANUAL) 1 % (0-0); RBC MORPHOLOGY COMMENT NORMAL
[2022-02-07] MEDS: DOCUSATE SODIUM 100 MG CAP PO SCH (08:39)
[2022-02-07] MEDS: SENNOSIDES 8.6 MG TAB PO SCH (08:39)
[2022-02-07] MEDS: IRON SUCROSE 100 MG in SODIUM CHLORIDE 0.9% 100 ML 100 ML IV SCH (08:42)
[2022-02-07] MEDS: INSULIN REGULAR, HUMAN 100 UNIT/1 ML SQ SCH ×4 (08:45→20:56)
[2022-02-07] MEDS ORDERED: VANCOMYCIN 250MG/5ML ORAL SOLN PO SCH (12:00)
[2022-02-07] MEDS ORDERED: SODIUM CHLORIDE 0.9% 100 ML ONE (15:13)
[2022-02-07] MEDS ORDERED: IOPAMIDOL 370 MG/ML 200 ML INFUS..BTL INJ ONE (15:13)
[2022-02-07] MEDS: INSULIN GLARGINE 100 UNITS/ML VIAL SQ SCH (20:56)
[2022-02-07 23:42] LABS: INR 1.21; PROTHROMBIN TIME 16.4 seconds (11.9-14.5)
[2022-02-08] VITALS: BP 98/54
[2022-02-08] MEDS: METOPROLOL TARTRATE INJ 1 MG/ML VIAL IV PRN ×2 (00:33→04:27)
[2022-02-08] MEDS: METOCLOPRAMIDE HCL 10 MG/2ML VIAL IV SCH ×4 (00:34→17:37)
[2022-02-08] MEDS: VANCOMYCIN HCL 125 MG CAPSULE PO SCH ×5 (00:34→17:37)
[2022-02-08] MEDS ORDERED: SODIUM CHLORIDE 0.9% 250ML 250 ML ONE ×3 (01:08→08:22)
[2022-02-08 04:44] VITALS: BP 102/73
[2022-02-08 08:34] VITALS: BP 107/61
[2022-02-08] MEDS ORDERED: CEFTRIAXONE 2 GM in SODIUM CHLORIDE 0.9% 100 ML IV SCH (09:00)
[2022-02-08 09:21] VITALS: BP 107/61
[2022-02-08] MEDS: ONDANSETRON HCL INJ 2MG/ML 2ML 2 MG/ML VIAL IV PRN (09:45)
[2022-02-08] MEDS: INSULIN REGULAR, HUMAN 100 UNIT/1 ML SQ SCH ×3 (09:53→16:52)
[2022-02-08] MEDS: SENNOSIDES 8.6 MG TAB PO SCH (09:55)
[2022-02-08] MEDS: DOCUSATE SODIUM 100 MG CAP PO SCH (09:55)
[2022-02-08] MEDS: IRON SUCROSE 100 MG in SODIUM CHLORIDE 0.9% 100 ML 100 ML IV SCH (10:41)
[2022-02-08 11:06] LABS: BASOPHILS # (AUTO) 0.1 (0.0-0.1); BASOPHILS % 0.3 % (0.0-1.0); LYMPHOCYTES # (AUTO) 1.7 (1.0-3.2); LYMPHOCYTES % 6.4 % (18.0-39.1); MEAN CORPUSCULAR HEMOGLOBIN 30.4 pg (28-32); MEAN CORPUSCULAR HGB CONC 33.2 g/dL (31-35); MEAN CORPUSCULAR VOLUME 91.8 fL (81-99); MONOCYTES # (AUTO) 1.9 (0.2-0.8); MONOCYTES % 7.2 % (4.4-11.3); NEUTROPHILS # (AUTO) 20.6 (2.1-6.9); NEUTROPHILS % 79.3 % (38.7-80.0); PLATELET COUNT 257 x10e3/uL (140-360); RED BLOOD COUNT 2.07 x10e6/uL (3.6-5.1); RED CELL DISTRIBUTION WIDTH 15.3 % (11.7-14.4)
[2022-02-08 11:15] LABS: HEMOGLOBIN 6.3 g/dL (12.0-16.0)
[2022-02-08 11:30] VITALS: BP 98/51
[2022-02-08 11:42] LABS: BAND NEUTROPHILS % (MANUAL) 2 %; LYMPHOCYTES % (MANUAL) 6 % (19-48); MONOCYTES % (MANUAL) 3 % (3.4-9.0); NEUTROPHILS % (MANUAL) 89 % (40-74); NUCLEATED RED BLOOD CELLS 1; PLATELET ESTIMATE ADEQUATE; PLATELET MORPHOLOGY COMMENT NORMAL; RBC MORPHOLOGY COMMENT NORMAL
[2022-02-08] MEDS ORDERED: SODIUM CHLORIDE 0.9% 250ML 250 ML IV ONE (11:45)
[2022-02-08] MEDS ORDERED: SODIUM CHLORIDE 0.9% 1000ML 1,000 ML IV ONE (12:30)
[2022-02-08 15:42] VITALS: BP 105/90
[2022-02-08 16:59] LABS: HEMATOCRIT 27.8 % (34.2-44.1); HEMOGLOBIN 9.3 g/dL (12.0-16.0)
[2022-02-08 17:07] LABS: INR 1.22; PROTHROMBIN TIME 16.5 seconds (11.9-14.5)
[2022-02-08 17:08] LABS: PARTIAL THROMBOPLASTIN TIME 32.2 seconds (23.8-35.5)
[2022-02-08] MEDS ORDERED: PIPERACILLIN/TAZOBACTAM 3.375 GM in SODIUM CHLORIDE 0.9% 50ML 50 ML IV SCH (22:00)
== END 2022-02-08 18:20 | disposition other institution (70) | DRG 405 ==
LOC: ER 03:37 → ERHOLD 05:51 → MED/SURG 08:05
PROVIDERS: ADMIT Internal Medicine; ATTEND Internal Medicine
PROC: 02HV33Z Insertion of Infusion Device into Superior Vena Cava, Percutaneous Approach (ICD-10-PCS; principal; 2022-01-30)
PROC: 0F9130Z Drainage of Right Lobe Liver with Drainage Device, Percutaneous Approach (ICD-10-PCS; 2022-01-30)
PROC: 30233N1 Transfusion of Nonautologous Red Blood Cells into Peripheral Vein, Percutaneous Approach (ICD-10-PCS; 2022-01-30)
PROC: 04L33DZ Occlusion of Hepatic Artery with Intraluminal Device, Percutaneous Approach (ICD-10-PCS; 2022-01-30)
PROC: B4121ZZ Fluoroscopy of Hepatic Artery using Low Osmolar Contrast (ICD-10-PCS; 2022-01-30)
PROC: 0FP030Z Removal of Drainage Device from Liver, Percutaneous Approach (ICD-10-PCS; 2022-02-05)
PROC: 0F9130Z Drainage of Right Lobe Liver with Drainage Device, Percutaneous Approach (ICD-10-PCS; 2022-02-05)
PROC: 30233L1 Transfusion of Nonautologous Fresh Plasma into Peripheral Vein, Percutaneous Approach (ICD-10-PCS; 2022-02-07)
PROC: 30233K1 Transfusion of Nonautologous Frozen Plasma into Peripheral Vein, Percutaneous Approach (ICD-10-PCS; 2022-02-07)
DX: K76.89 Other specified diseases of liver (principal); N17.0 Acute kidney failure with tubular necrosis; R57.8 Other shock; N10 Acute pyelonephritis; E87.2 Acidosis; D62 Acute posthemorrhagic anemia; E11.22 Type 2 diabetes mellitus with diabetic chronic kidney disease; N18.30 Chronic kidney disease, stage 3 unspecified; Z90.49 Acquired absence of other specified parts of digestive tract; E66.01 Morbid (severe) obesity due to excess calories; Z68.39 Body mass index [BMI] 39.0-39.9, adult; R91.8 Other nonspecific abnormal finding of lung field; I12.9 Hypertensive chronic kidney disease with stage 1 through stage 4 chronic kidney disease, or unspecified chronic kidney disease; E87.6 Hypokalemia; E83.51 Hypocalcemia; Z20.822 Contact with and (suspected) exposure to COVID-19
CPT/HCPCS: 36415; 36556; 49405; 49423; 71045; 71250; 74150; 74174; 74177; 74178; 74181; 74470; 75726; 75774; 76705; 76770; 76937; 76942; 77001; 80048; 80053; 80061; 81001; 82105; 82150; 82270; 82378; 82607; 82728; 82746; 82948; 83010; 83036; 83540; 83605; 83690; 83735; 84100; 84466; 85014; 85018; 85025; 85045; 85610; 85651; 85730; 86850; 86900; 86920; 87040; 87071; 87075; 87086; 87205; 93005; 94799; 96372; 99152; 99153; 99251; 99284; C1729; C1760; C1769; C1887; C1894; J0692; J0696; J1650; J1756; J1815; J1817; J1885; J1940; J2001; J2250; J2270; J2405; J2543; J2765; J3010; J3370; J3430; J3480; J7030; J7040; J7050; P9016; P9017; Q9967; U0002